=== PATIENT | male | born 1985 | race Caucasian/White ===

== ENCOUNTER 2024-03-08 06:10 | Day surgery (SDC) | payer BC ==
[2024-03-08] MEDS ORDERED: Propofol 200 MG/20 ML SDV IV ONE (06:11)
[2024-03-08] MEDS ORDERED: Ketamine 500 mg/10 ML MDV IV ONE (06:11)
[2024-03-08] MEDS ORDERED: Midazolam 1 MG/ML 2 ML SDV IV ONE (06:11)
[2024-03-08] MEDS ORDERED: Lidocaine 2% 100 MG/5 ML Syringe IVPUSH ONE ×2 (06:11)
[2024-03-08] MEDS ORDERED: Sodium Chloride 0.9% 10 ML Syringe FLUSH PRN (06:15)
[2024-03-08] MEDS: Lactated Ringers 1,000 ML IV SCH (07:15)
[2024-03-08] MEDS: Simethicone Drops 40 MG/0.6 ML 30 ML Bottle ONE (07:25)
== END 2024-03-08 09:22 | disposition home or self-care (01) ==
LOC: FB.SDS 06:10
PROVIDERS: ATTEND Surgery
DX: K21.00 Gastro-esophageal reflux disease with esophagitis, without bleeding (principal); K29.50 Unspecified chronic gastritis without bleeding; K40.90 Unilateral inguinal hernia, without obstruction or gangrene, not specified as recurrent
CPT/HCPCS: 00731; 88305; 88342; A9270-GY; J2250; J2704; J3490; J7120